=== PATIENT | female | born 1985 | race Caucasian/White ===

== ENCOUNTER 2023-05-30 00:29 | Day surgery (SDC) | payer MEDICARE, MEDICAID, SELFPAY ==
[2023-05-10 14:31] VITALS: BMI 47.8
[2023-05-30 11:33] VITALS: BP 140/82; PULSE 74; RESP 18; TEMP 36.2; O2SAT 98
--- NOTE | 2023-05-30 11:38 | PM.HPGS ---
History of Present Illness History of Present Illness Consent: Risks, benefits, and alternatives have been discussed and questions answered. Patient agrees to proceed with procedure. Chief complaint: GERD,Esophageal Obstruction,Nausea,vomiting Narrative: Radha Nolasco is a 38 year old female with gerd on dexilant and famotidine, gastroparesis on reglan (had abnormal GES) and nausea, also told that had Schatzki's ring- last EGD at another institution about 1.5 year ago. Review of Systems Constitutional: Constitutional: Denies headache(s) and Denies weakness Eyes: Eyes: Denies blurry vision ENT: Reports Normal hearing present, Denies headache(s) and Denies neck pain Cardiovascular: Cardiovascular: Denies chest pain and Denies dyspnea Respiratory: Respiratory: Denies dyspnea Gastrointestinal: Gastrointestinal: Reports no additional gastrointestinal complaints Genitourinary: Genitourinary: Denies dysuria Musculoskeletal: Musculoskeletal: Denies neck pain Integumentary/Breasts: Skin/Breast: Denies dry skin Neurologic: Reports Normal hearing present, Denies headache(s) and Denies weakness Psychiatric: Psychiatric: Denies anxiety Endocrine: Endocrine: Denies change in body appearance Hematologic/Lymphatic: Hematologic/Lymphatic: Denies easy bleeding Allergic/Immunologic: Allergic/Immunologic: Denies urticaria PMFSH Past Medical History Medical History (Updated 02/20/23 @ 11:23 by MARGI Castillo) Abdominal pain Anemia Constipation Gastroparesis GERD (gastroesophageal reflux disease) Hiatal hernia Hypothyroidism Morbid obesity with BMI of 45.0-49.9, adult Nausea and vomiting Schatzki's ring Social History Social History Smoking status: Never smoker Alcohol intake: former Substance use: never Substance use type: does not use Living arrangements: with roommate(s) Spiritual care concerns: No Meds Home Medications and Allergies Home Medications Medication Instructions Recorded Confirmed Type albuterol sulfate 90 mcg/actuation 1 inh inhalation Q4H PRN Shortness 02/20/23 05/10/23 History aerosol inhaler (Proventil HFA) Of Breath duloxetine 60 mg capsule,delayed 60 mg PO DAILY 02/20/23 05/10/23 History release lamotrigine 100 mg tablet 100 mg PO DAILY 02/20/23 05/10/23 History linaclotide 145 mcg capsule 145 mcg PO DAILY 02/20/23 05/10/23 History (Linzess) metoclopramide HCl 10 mg tablet 10 mg PO BID 02/20/23 05/10/23 History metoprolol succinate 25 mg 25 mg PO DAILY 02/20/23 05/10/23 History tablet,extended release 24 hr ondansetron 4 mg disintegrating 4 mg PO Q8H PRN Nausea 02/20/23 05/10/23 History tablet benztropine 1 mg tablet 1 mg PO BID 05/10/23 05/10/23 History cariprazine 6 mg capsule (Vraylar) 6 mg PO DAILY 05/10/23 05/10/23 History cholecalciferol (vitamin D3) 125 125 mcg PO DAILY 05/10/23 05/10/23 History mcg (5,000 unit) tablet (Vitamin D3) dexlansoprazole 30 mg 30 mg PO DAILY 05/10/23 05/10/23 History capsule,biphase delayed release duloxetine 30 mg capsule,delayed 30 mg PO DAILY 05/10/23 05/10/23 History release famotidine 40 mg tablet 40 mg PO HS 05/10/23 05/10/23 History ferrous sulfate, dried 159 mg (45 159 mg PO DAILY 05/10/23 05/10/23 History mg iron) tablet,extended release (iron ER) fluticasone propionate 115 2 puff inhalation BID 05/10/23 05/10/23 History mcg-salmeterol 21 mcg/actuation HFA inhaler (Advair HFA) levothyroxine 25 mcg tablet 25 mcg PO DAILY 05/10/23 05/10/23 History liothyronine 25 mcg tablet 12.5 mcg PO DAILY 05/10/23 05/10/23 History montelukast 10 mg tablet 10 mg PO HS 05/10/23 05/10/23 History potassium chloride 10 mEq 30 meq PO BID 05/10/23 05/10/23 History tablet,extended release prazosin 2 mg capsule 4 mg PO HS 05/10/23 05/10/23 History quetiapine 400 mg tablet 400 mg PO HS 05/10/23 05/10/23 History torsemide 40 mg tablet 40 mg PO QAM 05/10/23 05/10/23 History Allergies Allergy
--- NOTE | 2023-05-30 11:45 | WPDANESEPPF ---
Anes - Initial Pre Proc Eval Procedure: Operation Date: 05/30/23 12:00 Proposed Procedures p Esophagogastroduodenoscopy - Juliocesar Colon MD Date/Time: 05/30/23 11:45 Surgeon: Juliocesar Colon MD Pre Op Diagnosis: GERD,Esophageal Obstruction,Nausea,vomiting Patient Data Age: 38 Gender: F Height: 1.6 m Weight: 122.5 kg Allergies Allergy/AdvReac Type Severity Reaction Status Date / Time codeine Allergy Severe Swelling Verified 05/30/23 11:29 of Lip/Tongue/Throat gabapentin Allergy Severe Anaphylaxis Verified 05/30/23 11:29 zolpidem [From Ambien] Allergy Severe Hallucinati Verified 05/30/23 11:29 ng Home Medications Medication Instructions Recorded Confirmed Type albuterol sulfate 90 mcg/actuation 1 inh inhalation Q4H PRN Shortness 02/20/23 05/10/23 History aerosol inhaler (Proventil HFA) Of Breath duloxetine 60 mg capsule,delayed 60 mg PO DAILY 02/20/23 05/10/23 History release lamotrigine 100 mg tablet 100 mg PO DAILY 02/20/23 05/10/23 History linaclotide 145 mcg capsule 145 mcg PO DAILY 02/20/23 05/10/23 History (Linzess) metoclopramide HCl 10 mg tablet 10 mg PO BID 02/20/23 05/10/23 History metoprolol succinate 25 mg 25 mg PO DAILY 02/20/23 05/10/23 History tablet,extended release 24 hr ondansetron 4 mg disintegrating 4 mg PO Q8H PRN Nausea 02/20/23 05/10/23 History tablet benztropine 1 mg tablet 1 mg PO BID 05/10/23 05/10/23 History cariprazine 6 mg capsule (Vraylar) 6 mg PO DAILY 05/10/23 05/10/23 History cholecalciferol (vitamin D3) 125 125 mcg PO DAILY 05/10/23 05/10/23 History mcg (5,000 unit) tablet (Vitamin D3) dexlansoprazole 30 mg 30 mg PO DAILY 05/10/23 05/10/23 History capsule,biphase delayed release duloxetine 30 mg capsule,delayed 30 mg PO DAILY 05/10/23 05/10/23 History release famotidine 40 mg tablet 40 mg PO HS 05/10/23 05/10/23 History ferrous sulfate, dried 159 mg (45 159 mg PO DAILY 05/10/23 05/10/23 History mg iron) tablet,extended release (iron ER) fluticasone propionate 115 2 puff inhalation BID 05/10/23 05/10/23 History mcg-salmeterol 21 mcg/actuation HFA inhaler (Advair HFA) levothyroxine 25 mcg tablet 25 mcg PO DAILY 05/10/23 05/10/23 History liothyronine 25 mcg tablet 12.5 mcg PO DAILY 05/10/23 05/10/23 History montelukast 10 mg tablet 10 mg PO HS 05/10/23 05/10/23 History potassium chloride 10 mEq 30 meq PO BID 05/10/23 05/10/23 History tablet,extended release prazosin 2 mg capsule 4 mg PO HS 05/10/23 05/10/23 History quetiapine 400 mg tablet 400 mg PO HS 05/10/23 05/10/23 History torsemide 40 mg tablet 40 mg PO QAM 05/10/23 05/10/23 History Patient hx anesthesia problems: none Family hx anesthesia problems: none Results Review: All pre-operative results and documents have been reviewed as part of the pre-operative evaluation. [facility] Past Medical History Medical History (Updated 02/20/23 @ 11:23 by TOMI CastilloN-C) Abdominal pain Anemia Constipation Gastroparesis GERD (gastroesophageal reflux disease) Hiatal hernia Hypothyroidism Morbid obesity with BMI of 45.0-49.9, adult Nausea and vomiting Schatzki's ring Social History Social History Smoking status: Never smoker Alcohol intake: former Substance use: never Substance use type: does not use Living arrangements: with roommate(s) Spiritual care concerns: No Anes - Eval Final PreProcedure Day of Procedure 05/30/23 11:45 Patient weight: morbidly obese Heart: regular rate and rhythm Lungs: clear to auscultation Airway: Mallampati scale class III Neurological: alert and oriented Last oral intake: >/= 8 hours ASA classification: III Emergent: no Anesthetic plan: proceed Anesthesia type and monitoring: general GIVS and standard monitoring Results Review: All pre-operative results and documents have been reviewed as part of the pre-operative evaluation. Informed Consent: The patient's anest
[2023-05-30] MEDS: LACTATED RINGERS 1,000 ML 150 ML IV CONT (11:52)
[2023-05-30 12:08] VITALS: BP 107/66; PULSE 74; RESP 20; O2SAT 98
[2023-05-30 12:18] VITALS: BP 119/79; PULSE 75; RESP 27; O2SAT 98
[2023-05-30 12:28] VITALS: BP 115/76; PULSE 75; RESP 27; O2SAT 98
== END 2023-05-30 12:37 | disposition home or self-care (01) ==
PROVIDERS: PCP Nurse Practitioner Family; Visit Provider Internal Medicine Gastroenterology
PROC: 0DJ08ZZ Inspection of Upper Intestinal Tract, Via Natural or Artificial Opening Endoscopic (ICD-10-PCS; CPT 43235; principal; 2023-05-30 12:00)
DX: K31.84 Gastroparesis (principal); K21.9 Gastro-esophageal reflux disease without esophagitis; R11.2 Nausea with vomiting, unspecified; K22.2 Esophageal obstruction; K44.9 Diaphragmatic hernia without obstruction or gangrene; E03.9 Hypothyroidism, unspecified; E66.01 Morbid (severe) obesity due to excess calories; Z68.42 Body mass index [BMI] 45.0-49.9, adult
CPT/HCPCS: 43239; 88305; J2250; J2704; J7120